=== PATIENT | female | born 1970 | race Caucasian/White ===

== ENCOUNTER → 2018-05-30 | Outpatient (CLI) | payer OTHER ==
[2018-05-30 08:43] VITALS: BP 125/69; PULSE 94; TEMP 97.1; BMI 30.5
--- NOTE | 2018-05-30 09:19 | P.HPOB ---
History of Present Illness H&P Date: 05/30/18 Chief Complaint: The patient is here for her routine gynecologic exam and mammogram. This is a 48-year-old with an LMP of 05/06/2018. Her 's status post vasectomy. The patient is here to establish with this office. She states it has been about 11 years since her last pelvic exam. She has never had a mammogram before. She is without gynecologic complaints. Menses are regular every month lasting 3 to 4 days. During the past 6 months the flow during her menstrual periods have been slightly variable. Review of Systems The patient has lost 15 pounds over the last year and she has done this by eating healthier. She denies respiratory, cardiac, or G.I. problems. 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 History of Any Multi-Drug Resistant Organisms: None Reported Additional Past Surgical History / Comment(s): Carpal tunnel both hands. RK eye surgery. 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 - Past Family History Father Additional Family Medical History / Comment(s): Psoriasis. Mother Family Medical History: Cancer (Skin cancer.), Hypertension Additional Family Medical History / Comment(s): Maternal grandmother had uterine cancer. Medications and Allergies Home Medications Medication Instructions Recorded Confirmed Type Hydroxychloroquine Sulfate 200 mg PO BID 05/30/18 05/30/18 History [Plaquenil] Ibuprofen [Motrin Ib] 200 mg PO PRN 05/30/18 History Naproxen Sodium [Aleve] 220 mg PO PRN 05/30/18 History Allergies Allergy/AdvReac Type Severity Reaction Status Date / Time No Known Allergies Allergy Unverified 05/30/18 08:36 Exam Vital Signs Temp Pulse BP 05/30/18 08:39 97.1 F L 94 125/69 Intake and Output 05/29/18 05/30/18 05/30/18 22:59 06:59 14:59 Other: Weight 75.75 kg Height 5'2", weight 167 pounds, BMI 30.5. This is a well-developed well-nourished white female who is alert and oriented times 3 in no acute distress. HEENT: Within normal limits. NECK: Supple without mass or thyromegaly. CHEST AND LUNGS: Clear to auscultation. HEART: Regular rate and rhythm. BREASTS: Are without mass or discharge. AXILLARY EXAM: Negative for adenopathy. BACK: Negative for CVA tenderness. ABDOMEN: Soft, nontender, without palpable masses. PELVIC EXAM: Normal external genitalia. Cervix and vagina appear normal. There is no unusual discharge. There is no evidence of prolapse. The uterus is midposition, nongravid size and nontender. There are no palpable adnexal masses or tenderness. RECTAL EXAM: negative for mass or tenderness and is negative for occult blood. EXTREMITIES: Nontender. IMPRESSION: 1. 48-year-old female with normal gynecologic exam. 2. Her 's status post vasectomy. PLAN: 1. Pap smear was performed. I have recommended yearly pelvic exams. 2. Self breast awareness was discussed with the patient. 3. Screening baseline mammogram will be done today. I recommended that she do mammograms at least every 1 to 2 years. 4. Osteoporosis prevention was discussed. 5. She will return in one year.
--- NOTE | 2018-05-30 11:46 | MM ---
Reason for exam: screening (asymptomatic). Baseline mammogram. Physical Findings: Dr. Alatorre did breast exam. MG Screening Mammo w CAD Bilateral CC and MLO view(s) were taken. There are scattered fibroglandular densities. There is no discrete abnormality. These results were verbally communicated with the patient and result sheet given to the patient on 05/30/18. ASSESSMENT: Negative, BI-RAD 1 RECOMMENDATION: Routine screening mammogram of both breasts in 1 year.
== END ==
LOC: WWCWWP 08:18
PROVIDERS: ATTEND Obstetrics & Gynecology
DX: Z12.31 Encounter for screening mammogram for malignant neoplasm of breast (principal)
CPT/HCPCS: 77067

== ENCOUNTER → 2019-07-31 | Outpatient (CLI) | payer BC ==
[2019-07-31 08:01] VITALS: BP 129/77; PULSE 98; RESP 18; TEMP 98.1
--- NOTE | 2019-07-31 08:25 | P.HPOB ---
History of Present Illness H&P Date: 07/31/19 Chief Complaint: The patient is here for her routine gynecologic exam and ma mmogram. This is a 49-year-old 014 with an LMP of 07/23/2019. The patient is without gynecologic complaints. Her is status post vasectomy. Patient states her menstrual periods are regular every month. Review of Systems The patient has gained 20 pounds over the last year. She attributes this to lack of exercise. She denies respiratory, cardiac, or G.I. problems. 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 History of Any Multi-Drug Resistant Organisms: None Reported Additional Past Surgical History / Comment(s): Carpal tunnel both hands. RK eye surgery. 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 - Past Family History Father Additional Family Medical History / Comment(s): Psoriasis. Mother Family Medical History: Cancer, Hypertension Additional Family Medical History / Comment(s): Skin cancer. Maternal grandmother had uterine cancer. Medications and Allergies Home Medications Medication Instructions Recorded Confirmed Type Ibuprofen [Motrin Ib] 200 mg PO DAILY PRN 05/30/18 07/31/19 History Naproxen Sodium [Aleve] 220 mg PO DAILY PRN 05/30/18 07/31/19 History Tofacitinib Citrate [Xeljanz Xr] 11 mg PO DAILY 07/31/19 07/31/19 History Allergies Allergy/AdvReac Type Severity Reaction Status Date / Time No Known Allergies Allergy Unverified 07/31/19 08:03 Exam Vital Signs Temp Pulse Resp BP Pulse Ox 07/31/19 07:55 98.1 F 98 18 129/77 100 Intake and Output 07/30/19 07/31/19 07/31/19 22:59 06:59 14:59 Other: Weight 84.822 kg Height 5 feet 2 inches, weight 187 pounds, BMI 34.2. This is a well-developed well-nourished white female who is alert and oriented times 3 in no acute distress. HEENT: Within normal limits. NECK: Supple without mass or thyromegaly. CHEST AND LUNGS: Clear to auscultation. HEART: Regular rate and rhythm. BREASTS: Are without mass or discharge. AXILLARY EXAM: Negative for adenopathy. BACK: Negative for CVA tenderness. ABDOMEN: Soft, nontender, without palpable masses. PELVIC EXAM: Normal external genitalia. Cervix and vagina appear normal. There is no unusual discharge. There is no evidence of prolapse. The uterus is midposition, multiparous, nongravid size and nontender. There are no palpable adnexal masses or tenderness. RECTAL EXAM: negative for mass or tenderness and is negative for occult blood. EXTREMITIES: Nontender. IMPRESSION: 1. 49-year-old premenopausal female whose is status post vasectomy, with normal gynecologic exam. PLAN: 1. Pap smear was deferred since she had a normal one on 05/30/2018. 2. Self breast awareness was discussed with the patient. 3. Screening mammogram will be done today. 4. Osteoporosis prevention was discussed. I have stressed the importance of adequate calcium, vitamin D and regular exercise. Recommended amounts of calcium and vitamin D were also discussed. 5. We have discussed her weight gain and we have discussed the importance of good nutrition and regular exercise. 6. She was advised to return in one year for her annual well woman exam.
--- NOTE | 2019-08-01 11:22 | MM ---
Reason for exam: screening (asymptomatic). Last mammogram was performed 1 year and 2 months ago. Physical Findings: A clinical breast exam by your physician is recommended on an annual basis and results should be correlated with mammographic findings. MG Screening Mammo w CAD Bilateral CC and MLO view(s) were taken. Prior study comparison: May 30, 2018, bilateral MG screening mammo w CAD. There are scattered fibroglandular densities. No suspicious abnormality. No significant changes when compared with prior studies. ASSESSMENT: Negative, BI-RAD 1 RECOMMENDATION: Routine screening mammogram of both breasts in 1 year.
== END | disposition home or self-care (01) ==
LOC: WWCWWP 07:44
PROVIDERS: ATTEND Obstetrics & Gynecology
DX: Z12.31 Encounter for screening mammogram for malignant neoplasm of breast (principal)
CPT/HCPCS: 77067

== ENCOUNTER → 2020-09-23 | Outpatient (CLI) | payer BC ==
[2020-09-23 12:54] VITALS: BP 149/80; PULSE 87; RESP 18; TEMP 98.1
--- NOTE | 2020-09-23 13:21 | P.HPOB ---
History of Present Illness H&P Date: 09/23/20 Chief Complaint: The patient is here for her routine gynecologic exam and ma mmogram. This is a 50-year-old with an LMP of 09/19/2020. The patient is without gynecologic complaints. Menstrual periods are regular every month. Her is status post vasectomy. Review of Systems The patient's weight has been stable over the last year. She denies respiratory, cardiac, or G.I. problems. 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 History of Any Multi-Drug Resistant Organisms: None Reported Additional Past Surgical History / Comment(s): Carpal tunnel both hands. RK eye surgery. 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 - Past Family History Father Additional Family Medical History / Comment(s): Psoriasis. Mother Family Medical History: Cancer, Hypertension Additional Family Medical History / Comment(s): Skin cancer. Maternal grandmother had uterine cancer. Medications and Allergies Home Medications Medication Instructions Recorded Confirmed Type Ibuprofen [Motrin Ib] 200 mg PO DAILY PRN 05/30/18 09/23/20 History Naproxen Sodium [Aleve] 220 mg PO DAILY PRN 05/30/18 09/23/20 History Tofacitinib Citrate [Xeljanz Xr] 11 mg PO DAILY 07/31/19 09/23/20 History Allergies Allergy/AdvReac Type Severity Reaction Status Date / Time No Known Allergies Allergy Unverified 09/23/20 12:49 Exam Vital Signs Temp Pulse Resp BP Pulse Ox 09/23/20 12:50 98.1 F 87 18 149/80 98 Intake and Output 09/22/20 09/23/20 09/23/20 22:59 06:59 14:59 Other: Weight 83.915 kg Height 5 feet 1-1/2 inches, weight 185 pounds, BMI 34.4. This is a well-developed well-nourished white female who is alert and oriented times 3 in no acute distress. HEENT: Within normal limits. NECK: Supple without mass or thyromegaly. CHEST AND LUNGS: Clear to auscultation. HEART: Regular rate and rhythm. BREASTS: Are without mass or discharge. AXILLARY EXAM: Negative for adenopathy. BACK: Negative for CVA tenderness. ABDOMEN: Soft, nontender, without palpable masses. PELVIC EXAM: Normal external genitalia. Cervix and vagina appear normal. There is no unusual discharge. There is no evidence of prolapse. The uterus is midposition, nongravid size and nontender. There are no palpable adnexal masses or tenderness. RECTAL EXAM: negative for mass or tenderness and is negative for occult blood. EXTREMITIES: Nontender. IMPRESSION: 1. 50-year-old perimenopausal female whose is status post vasectomy with normal gynecologic exam. PLAN: 1. Pap smear cotest was performed. 2. Self breast awareness was discussed with the patient. 3. Screening mammogram will be done today. 4. Osteoporosis prevention was discussed. I have stressed the importance of adequate calcium, vitamin D and regular exercise. Recommended amounts of calcium and vitamin D were also discussed. 5. She was advised to return in one year for her annual well woman exam.
--- NOTE | 2020-09-24 13:46 | MM ---
Reason for exam: screening (asymptomatic). Last mammogram was performed 1 year and 2 months ago. History: Took hormonal contraceptives beginning at age 22. Physical Findings: A clinical breast exam by your physician is recommended on an annual basis and results should be correlated with mammographic findings. MG Screening Mammo w CAD Bilateral CC and MLO view(s) were taken. Prior study comparison: July 31, 2019, bilateral MG screening mammo w CAD. May 30, 2018, bilateral MG screening mammo w CAD. There are scattered fibroglandular densities. Focal asymmetry left upper outer quadrant, new. This finding is changed when compared with previous exams. ASSESSMENT: Incomplete: need additional imaging evaluation, BI-RAD 0 RECOMMENDATION: Special view mammogram of the left breast. If lesion persists on supplemental views, image directed ultrasound is recommended. [facility] will attempt to contact patient to return for supplemental views and ultrasound if indicated.
== END ==
LOC: WWCWWP 12:38
PROVIDERS: ATTEND Obstetrics & Gynecology
DX: Z01.419 Encounter for gynecological examination (general) (routine) without abnormal findings (principal); M06.9 Rheumatoid arthritis, unspecified; Z79.1 Long term (current) use of non-steroidal anti-inflammatories (NSAID)
CPT/HCPCS: 77067

== ENCOUNTER → 2020-10-09 | Outpatient (CLI) | payer BC ==
--- NOTE | 2020-10-10 09:17 | MM ---
Reason for exam: additional evaluation requested from abnormal screening. Last mammogram was performed 1 month ago. History: Took hormonal contraceptives beginning at age 22. Physical Findings: Nurse did not find any significant physical abnormalities on exam. MG Work Up Mamm w CAD LT Spot compression CC, spot compression MLO, and LM view(s) were taken of the left breast. Prior study comparison: September 23, 2020, bilateral MG screening mammo w CAD. July 31, 2019, bilateral MG screening mammo w CAD. There are scattered fibroglandular densities. There is no discrete abnormality including area of concern. No significant new findings when compared with previous films. These results were verbally communicated with the patient and result sheet given to the patient on 10/09/20. ASSESSMENT: Negative, BI-RAD 1 RECOMMENDATION: Return to routine screening mammogram schedule for both breasts.
== END | disposition home or self-care (01) ==
LOC: RADMAMWWP 14:42
PROVIDERS: ATTEND Obstetrics & Gynecology
DX: R92.8 Other abnormal and inconclusive findings on diagnostic imaging of breast (principal)
CPT/HCPCS: 77065

== ENCOUNTER 2022-03-08 11:50 | Emergency (ER) | payer BC ==
[2022-03-08 12:02] VITALS: RESP 18
[2022-03-08] MEDS ORDERED: methylPREDNISolone SOD SUCCI 125 MG/2 ML VIAL IV STA (12:09)
[2022-03-08] MEDS ORDERED: FAMOTIDINE 20 MG/2 ML VIAL IV STA (12:09)
[2022-03-08] MEDS ORDERED: diphenhydrAMINE 50 MG/ML 1 ML VIAL IVP STA (12:09)
[2022-03-08] MEDS ORDERED: SODIUM CHLORIDE 0.9% 1,000 ML IV STA (12:09)
--- NOTE | 2022-03-08 12:17 | ED ---
Allergic Reaction HPI - General Chief complaint: Skin/Abscess/Foreign Body Stated complaint: Bee Sting Time Seen by Provider: 03/08/22 11:53 Source: patient, EMS, RN notes reviewed Mode of arrival: EMS Limitations: no limitations - History of Present Illness Initial Comments: This is a 51-year-old female who presents to the emergency department for bee s tings. Patient states that she was weed whacking and went over a beehive, causing her to get stung approximately 25 times. She took 50 mg of Benadryl at home followed by a cold shower. She then called EMS as she noticed severe swelling and tingling in her mouth. States that the Benadryl did help quite a bit with the swelling. Currently has minor tingling in her lips. Denies any respiratory distress. Denies any fevers, chills, sore throat, cough, dyspnea, chest pain, palpitations, abdominal pain, nausea, vomiting, diarrhea, back pain, or headaches. MD Complaint: hives - Related Data Home Medications Medication Instructions Recorded Confirmed Ibuprofen [Motrin Ib] 200 mg PO DAILY PRN 05/30/18 09/23/20 Naproxen Sodium [Aleve] 220 mg PO DAILY PRN 05/30/18 09/23/20 Tofacitinib Citrate [Xeljanz Xr] 11 mg PO DAILY 07/31/19 09/23/20 Previous Rx's Medication Instructions Recorded EPINEPHrine (Auto Inject) [Epipen] 0.3 mg IM ONCE PRN #1 each 03/08/22 Allergies Allergy/AdvReac Type Severity Reaction Status Date / Time No Known Allergies Allergy Verified 03/08/22 12:01 Review of Systems ROS Statement: Those systems with pertinent positive or pertinent negative responses have been documented in the HPI. ROS Other: All systems not noted in ROS Statement are negative. 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 History of Any Multi-Drug Resistant Organisms: None Reported Additional Past Surgical History / Comment(s): Carpal tunnel both hands. RK eye surgery. Past Psychological History: No Psychological Hx Reported Smoking Status: Never smoker Past Alcohol Use History: None Reported Past Drug Use History: None Reported - Past Family History Father Additional Family Medical History / Comment(s): Psoriasis. Mother Family Medical History: Cancer, Hypertension Additional Family Medical History / Comment(s): Skin cancer. Maternal grandmother had uterine cancer. General Exam Limitations: no limitations General appearance: alert, in no apparent distress Head exam: Present: atraumatic, normocephalic, normal inspection Respiratory exam: Present: normal lung sounds bilaterally. Absent: respiratory distress, wheezes, rales, rhonchi, stridor Cardiovascular Exam: Present: regular rate, normal rhythm, normal heart sounds. Absent: systolic murmur, diastolic murmur, rubs, gallop, clicks Skin exam: Present: other (Diffuse urticaria on the back.) Course Vital Signs 03/08/22 03/08/22 03/08/22 11:54 12:29 13:24 Temperature 98.3 F 98.1 F Pulse Rate 102 H 98 84 Respiratory 18 18 18 Rate Blood Pressure 151/89 135/83 141/82 O2 Sat by Pulse 98 100 99 Oximetry Medical Decision Making - Medical Decision Making This is a 51-year-old female who presents to the emergency department for an allergic reaction. She was not in any respiratory distress upon arrival. She noted some numbness and tingling to her lips. Patient given IV Solu-Medrol, Benadryl, and Pepcid. She noted substantial improvement following medication administration. She had no residual symptoms. Prescription for EpiPen was sent to the pharmacy in the event this happens again. Advised she continue to take Benadryl and Pepcid as needed for any residual symptoms. Return precautions reviewed in depth, the patient is instructed to return to the emergency department with any new, worsening, or concerning symptoms. Patient verbalized understanding. This case was discussed in detail with the attending ED physician. Presentation, findings, and treatment plan discussed in detail as well. Disposition Clinical Impression: Allergic reaction to bee sting Disposition: HOME SELF-CARE Instructions (If sedation given, give patient instructions): Urticaria (ED), Insect Bite or Sting (ED) Additional Instructions: Return to the emergency department with any new, worsening, or concerning symptoms. Use the EpiPen as instructed if this happens again. Follow up with your primary care provider to discuss allergy testing if they feel it is indicated. Take Benadryl and Pepcid if you have any residual symptoms. Prescriptions: EPINEPHrine (Auto Inject) [Epipen] 0.3 mg IM ONCE PRN #1 each PRN Reason: Anaphylaxis Is patient prescribed a controlled substance at d/c from ED?: No Referrals: Dimas Langston MD [Primary Care Provider] - 1-2 days
[2022-03-08 13:25] VITALS: BP 141/82; PULSE 84; TEMP 98.1
== END 2022-03-08 13:24 | disposition home or self-care (01) ==
LOC: EC 11:50
DX: T63.441A Toxic effect of venom of bees, accidental (unintentional), initial encounter (principal)
CPT/HCPCS: 96374; 96375; 96361; 99283; J1200; J2930

== ENCOUNTER → 2023-02-08 | Outpatient (CLI) | payer BC ==
[2023-02-08 15:13] VITALS: BP 130/85; PULSE 104; RESP 18; TEMP 98.1
--- NOTE | 2023-02-08 15:37 | P.HPOB ---
History of Present Illness H&P Date: 02/08/23 Chief Complaint: The patient is here for her routine gynecologic exam and ma mmogram. This is a 52-year-old 014 with an LMP of 01/18/2023. Her is status post vasectomy. She has noticed some breast sensitivity on both sides during the past 1-1/2 weeks. Her menstrual periods have been regular every month. She denies any significant hot flashes. She is otherwise without complaints. Review of Systems The patient's weight has been stable over the last year. She denies respiratory, cardiac, or G.I. problems. 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 History of Any Multi-Drug Resistant Organisms: None Reported Additional Past Surgical History / Comment(s): Carpal tunnel both hands. RK eye surgery. 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 - Past Family History Father Additional Family Medical History / Comment(s): Psoriasis. Mother Family Medical History: Cancer, Hypertension Additional Family Medical History / Comment(s): Skin cancer. Maternal grandmother had uterine cancer. Medications and Allergies Home Medications Medication Instructions Recorded Confirmed Type Ibuprofen [Motrin Ib] 200 mg PO DAILY PRN 05/30/18 02/08/23 History Naproxen Sodium [Aleve] 220 mg PO DAILY PRN 05/30/18 02/08/23 History Tofacitinib Citrate [Xeljanz Xr] 11 mg PO DAILY 07/31/19 02/08/23 History EPINEPHrine (Auto Inject) [Epipen] 0.3 mg IM ONCE PRN #1 each 03/08/22 02/08/23 Rx Hydroxychloroquine Sulfate 200 mg PO BID 02/08/23 02/08/23 History [Plaquenil] Allergies Allergy/AdvReac Type Severity Reaction Status Date / Time No Known Allergies Allergy Verified 02/08/23 15:06 Exam Vital Signs Temp Pulse Resp BP Pulse Ox 02/08/23 15:07 98.1 F 104 H 18 130/85 99 Intake and Output 02/08/23 02/08/23 02/08/23 06:59 14:59 22:59 Other: Weight 84.368 kg Height 5 feet 1-1/2 inches, weight 186 pounds, BMI 34.6. This is a well-developed well-nourished white female who is alert and oriented times 3 in no acute distress. HEENT: Within normal limits. NECK: Supple without mass or thyromegaly. CHEST AND LUNGS: Clear to auscultation. HEART: Regular rate and rhythm. BREASTS: Are without mass or discharge. AXILLARY EXAM: Negative for adenopathy. BACK: Negative for CVA tenderness. ABDOMEN: Soft, nontender, without palpable masses. PELVIC EXAM: Normal external genitalia. Cervix and vagina appear normal. There is no unusual discharge. There is no evidence of prolapse. The uterus is midposition, nongravid size and nontender. There are no palpable adnexal masses or tenderness. RECTAL EXAM: Rectovaginal exam is negative for mass or tenderness and is ne gative for occult blood. EXTREMITIES: Nontender. IMPRESSION: 1. 52-year-old female whose is status post vasectomy, with normal gynecologic exam. 2. Regular menstrual periods. PLAN: 1. Pap smear was deferred since she had a negative Pap smear cotest on 09/23/2020. 2. Self breast awareness was discussed with the patient. We have also discussed symptoms associated with inflammatory breast cancer. 3. Screening mammogram will be done today. 4. Osteoporosis prevention was discussed. I have stressed the importance of adequate calcium, vitamin D and regular exercise. Recommended amounts of calcium and vitamin D were also discussed. 5. Colorectal cancer screening was discussed we have discussed options such as colonoscopy and Cologuard. She will discuss the options with her PCP. 6. She was advised to return in one year for her annual well woman exam.
--- NOTE | 2023-02-09 07:59 | MM ---
Reason for Exam: Screening (asymptomatic). Last mammogram was performed 2 year(s) and 5 month(s) ago. Patient History: Menarche at age 14. First Full-Term at age 25. Hormonal Contraceptives, from age 22 until age 34. Last menstrual period: 01/13/2023 Risk Values: Mary Ellen 5 year model risk: 0.9%. NCI Lifetime model risk: 7.9%. Prior Study Comparison: 07/31/2019 Bilateral Screening Mammogram, [facility]. 09/23/2020 Bilateral Screening Mammogram, [facility]. 10/09/2020 Left Diagnostic Mammogram, [facility]. Tissue Density: There are scattered fibroglandular densities. Findings: Analyzed By CAD. There is no suspicious group of microcalcifications or new suspicious mass in either breast. Overall Assessment: Negative, BI-RAD 1 Management: Screening Mammogram of both breasts in 1 year. . Patient should continue monthly self-breast exams. A clinical breast exam by your physician is recommended on an annual basis. This exam should not preclude additional follow-up of suspicious palpable abnormalities. Note on Mary Ellen scores and lifetime risk: 1. A Mary Ellen score greater than 3% is considered moderate risk. If this is the case, consider specialist referral to assess eligibility for a risk reducing agent. 2. If overall lifetime risk for the development of breast cancer is 20% or higher, the patient may qualify for future screening with alternating mammogram and breast MRI. Electronically signed and approved by: Onofre Granda M.D. Radiologis
== END ==
LOC: WWCWWP 14:56
PROVIDERS: ATTEND Obstetrics & Gynecology
DX: Z01.419 Encounter for gynecological examination (general) (routine) without abnormal findings (principal); M06.9 Rheumatoid arthritis, unspecified; Z12.31 Encounter for screening mammogram for malignant neoplasm of breast
CPT/HCPCS: 77067

== ENCOUNTER → 2024-07-03 | Outpatient (CLI) | payer BC ==
[2024-07-03 09:18] VITALS: BP 138/85; PULSE 100; RESP 17; TEMP 98.2
--- NOTE | 2024-07-03 10:16 | P.HPOB ---
History of Present Illness H&P Date: 07/03/24 Chief Complaint: The patient is here for her routine gynecologic exam and ma mmogram. This is a 54-year-old -0-1-4 with an LMP of 06/30/2024. Her is status post vasectomy. She states her menstrual periods are monthly, but can be slightly unpredictable. She denies any significant hot flashes. She is otherwise without gynecologic complaints. Review of Systems The patient has lost 5 pounds over the last year. She has been trying to exercise regularly. She denies respiratory, cardiac, or G.I. problems. 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 History of Any Multi-Drug Resistant Organisms: None Reported Additional Past Surgical History / Comment(s): Carpal tunnel both hands. RK eye surgery. 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. - Past Family History Father Additional Family Medical History / Comment(s): Psoriasis. Mother Family Medical History: Cancer, Hypertension Additional Family Medical History / Comment(s): Skin cancer. Maternal grandmother had uterine cancer. Medications and Allergies Home Medications Medication Instructions Recorded Confirmed Type Ibuprofen [Motrin Ib] 200 mg PO DAILY PRN 05/30/18 07/03/24 History Naproxen Sodium [Aleve] 220 mg PO DAILY PRN 05/30/18 07/03/24 History Tofacitinib Citrate [Xeljanz Xr] 11 mg PO DAILY 07/31/19 07/03/24 History EPINEPHrine (Auto Inject) [Epipen] 0.3 mg IM ONCE PRN #1 each 03/08/22 07/03/24 Rx Hydroxychloroquine Sulfate 200 mg PO BID 02/08/23 07/03/24 History [Plaquenil] Allergies Allergy/AdvReac Type Severity Reaction Status Date / Time No Known Allergies Allergy Verified 07/03/24 09:15 Exam Vital Signs Temp Pulse Resp BP Pulse Ox 07/03/24 09:16 98.2 F 100 17 138/85 99 Intake and Output 07/02/24 07/03/24 07/03/24 22:59 06:59 14:59 Other: Weight 82.1 kg Height 5 feet 2 inches, weight 181 pounds, BMI 33.1. This is a well-developed well-nourished right female who is alert and oriented times 3 in no acute distress. HEENT: Within normal limits. NECK: Supple without mass or thyromegaly. CHEST AND LUNGS: Clear to auscultation. HEART: Regular rate and rhythm. BREASTS: Are without mass or discharge. AXILLARY EXAM: Negative for adenopathy. BACK: Negative for CVA tenderness. ABDOMEN: Soft, nontender, without palpable masses. PELVIC EXAM: Normal external genitalia minimal atrophy. Cervix and vagina appear normal. There is a moderate amount of menstrual blood in the vagina consistent with her recent LMP. There is no unusual discharge. There is no evidence of prolapse. The uterus is midposition, nongravid size and nontender. There are no palpable adnexal masses or tenderness. RECTAL EXAM: Rectovaginal exam is negative for mass or tenderness and is negative for occult blood. EXTREMITIES: Nontender. IMPRESSION: 1. 54-year-old premenopausal female whose is status post vasectomy, with normal gynecologic exam. PLAN: 1. Pap smear was deferred since she had a negative Pap smear cotest on 09/23/2020. 2. Self breast awareness was discussed with the patient. We have also discussed symptoms associated with inflammatory breast cancer. 3. Screening mammogram will be done today. 4. The patient will keep a menstrual calendar and call if menstrual problems. 5. Osteoporosis prevention was discussed. I have stressed the importance of adequate calcium, vitamin D and regular exercise. Recommended amounts of calcium and vitamin D were also discussed. 6. She was advised to return in one year for her annual well woman exam.
--- NOTE | 2024-07-05 18:28 | MM ---
Reason for Exam: Screening (asymptomatic). Last mammogram was performed 1 year(s) and 4 month(s) ago. Patient History: Menarche at age 14. First Full-Term at age 25. Perimenopausal. Hormonal Contraceptives, from age 22 until age 34. Risk Values: Mary Ellen 5 year model risk: 1.0%. NCI Lifetime model risk: 7.7%. Prior Study Comparison: 09/23/2020 Bilateral Screening Mammogram, [facility]. 10/09/2020 Left Diagnostic Mammogram, [facility]. 02/08/2023 Bilateral MG screening mammo w CAD, [facility]. Tissue Density: There are scattered areas of fibroglandular density. Findings: Analyzed By CAD. The pattern is symmetrical. No significant interval change. No suspicious groups of microcalcifications, spiculated or lobular masses, architectural distortion or other secondary signs of malignancy are mammographically apparent. Overall Assessment: Benign, BI-RAD 2 Management: Screening Mammogram of both breasts in 1 year. A negative mammogram report should not preclude additional follow up of suspicious palpable abnormalities. Patient should continue monthly self breast exam. A clinical breast exam by your physician is recommended on an annual basis and results should be correlated with mammographic findings. Note on Mary Ellen scores and lifetime risk: 1. A Mary Ellen score greater than 3% is considered moderate risk. If this is the case, consider specialist referral to assess eligibility for a risk reducing agent. 2. If overall lifetime risk for the development of breast cancer is 20% or higher, the patient may qualify for future screening with alternating mammogram and breast MRI. [facility], , 07/05/2024 6:25 PM. Electronically signed and approved by: Vivek Borja D.O. Radiologis
== END ==
LOC: WWCWWP 09:07
PROVIDERS: ATTEND Obstetrics & Gynecology
DX: Z98.51 Tubal ligation status (principal)
CPT/HCPCS: 77063; 77067